=== PATIENT | female | born 2000 | race African-American/Black ===

== ENCOUNTER 2025-07-21 19:32 | Emergency (ER) | payer OTHER, MEDICAID ==
[~2025-07-21] VITALS: Ht 160 cm; Wt 73.0 kg
[2025-07-21 19:40] VITALS: O2SAT 100
[2025-07-21 21:58] LABS: BASOPHILS % 1.5 % (0.0-2.0); EOSINOPHILS % 4.6 % (0.0-5.0); HEMATOCRIT. 35.3 % (36.0-48.0); HEMOGLOBIN. 11.7 g/dL (12.0-16.0); LYMPHOCYTES % 34.6 % (20.0-50.0); MEAN PLATELET VOLUME 7.4 fl (7.4-10.4); MONOCYTES % 6.5 % (2.0-8.0); NEUTROPHILS % 52.8 % (40.0-76.0); PLATELET 387 x1000/uL (130-400); RED BLOOD CELL COUNT 3.99 mill/uL (4.2-5.4); RED CELL DISTRIBUTION WIDTH 12.4 % (11.6-14.6)
[2025-07-21] MEDS: ACETAMINOPHEN 500MG TABLET PO ONE (21:59)
[2025-07-21 22:11] LABS: HCG SCREEN NEGATIVE
[2025-07-21 22:12] LABS: CREATININE 0.9 mg/dL (0.6-1.0); UREA NITROGEN BLOOD 11 mg/dL (9-23)
[2025-07-21 22:14] LABS: ASPARTATE AMINOTRANSFERASE 16 IU/L (<34)
[2025-07-21 22:15] LABS: BILIRUBIN TOTAL 0.4 mg/dL (0.1-1.0); PROTEIN TOTAL 7.0 g/dL (6.0-8.3)
[2025-07-22] MEDS ORDERED: IBUP-1455 MT (02:07)
[2025-07-22] MEDS ORDERED: CYCL10TA21 MT (02:07)
[2025-07-22 03:20] VITALS: BP 116/68; PULSE 82; RESP 17; TEMP 36.6; O2SAT 100
[2025-07-22] MEDS ORDERED: IOHEXOL-300 100 ML BOTTLE ONE (03:32)
== END 2025-07-22 03:21 | disposition home or self-care (01) ==
LOC: ER 19:32
DX: S16.1XXA Strain of muscle, fascia and tendon at neck level, initial encounter (principal); S40.012A Contusion of left shoulder, initial encounter; S09.90XA Unspecified injury of head, initial encounter; R10.30 Lower abdominal pain, unspecified; V89.2XXA Person injured in unspecified motor-vehicle accident, traffic, initial encounter; Y93.89 Activity, other specified; Y92.410 Unspecified street and highway as the place of occurrence of the external cause; Y99.8 Other external cause status
CPT/HCPCS: 99285; 70450; 80053; 84703; 85025; 36415; 73030; 72125; 71260; 74177; Q9967; A4565

== ENCOUNTER 2025-07-29 12:31 | Emergency (ER) | payer OTHER, MEDICAID ==
[~2025-07-29] VITALS: Ht 157.5 cm; Wt 73.0 kg
[~2025-07-29 12:31] MED LIST: CYCL10TA21 MT; IBUP-1455 MT
[2025-07-29 12:46] VITALS: TEMP 36.7; O2SAT 100
[2025-07-29] MEDS ORDERED: IBUP-2030 MT (14:00)
[2025-07-29] MEDS ORDERED: CYCL10TA21 MT (14:03)
[2025-07-29] MEDS: KETOROLAC 30MG/ML VIAL IM ONE (14:06)
[2025-07-29 14:15] VITALS: BP 112/84; PULSE 83; RESP 16; O2SAT 100
== END 2025-07-29 14:18 | disposition home or self-care (01) ==
LOC: ER 12:50
DX: M54.50 Low back pain, unspecified (principal); M79.604 Pain in right leg; M79.605 Pain in left leg; M79.18 Myalgia, other site; Z79.899 Other long term (current) drug therapy
CPT/HCPCS: 99283; 96372; J1885